=== PATIENT | male | born 1945 | race Caucasian/White ===

== ENCOUNTER 2018-08-15 06:39 | Day surgery (SDC) | payer MEDICARE ==
[2018-08-14 12:59] VITALS: BMI 46.0
[2018-08-15] MEDS ORDERED: Fentanyl 100 MCG/2 ML VIAL ONE (09:26)
--- NOTE | 2018-08-15 12:43 | OP ---
DATE OF PROCEDURE: 08/15/2018 PREOPERATIVE DIAGNOSIS: Anemia. DESCRIPTION OF PROCEDURE: After informed consent was obtained, the patient was placed in the left lateral decubitus position. Anesthesia was administered per the Anesthesia Department. Forward-viewing endoscope was inserted into the esophagus under direct visualization with ease and passed to the second portion of the duodenum with ease. Second portion of the duodenum was normal. Duodenal bulb showed mild erythema and two small erosions. Biopsies were taken from the second portion of the duodenum and from the gastric antrum. The pylorus, antrum, body, fundus, and cardia were all normal. Retroflexion in the stomach was normal. The esophagus was normal throughout. ASSESSMENT: 1. Mild duodenitis-status post biopsy for Helicobacter pylori. 2. Otherwise normal esophagogastroduodenoscopy. RECOMMENDATIONS: 1. Await histopathology. 2. Proceed with colonoscopy. DESCRIPTION OF PROCEDURE: After informed consent was obtained, the patient was placed in the left lateral decubitus position. Anesthesia was administered per the Anesthesia Department. Forward-viewing endoscope was inserted into the rectum after perianal inspection and rectal exam were normal and passed to the cecum with some difficulty secondary to looping for intubation of the cecum was not performed, but the cecal cap could be seen in its entirety and showed no abnormalities. The prep was good. Diffuse diverticula were noted in the colon. Multiple polyps were seen. All these polyps were in the small range. They were sessile or pedunculated and they were all removed with either cold snare polypectomy or hot snare polypectomy. One polyp in the area of the descending had some minor bleeding after the polypectomy and was treated with a 10-Prydeinig BICAP electrocautery probe. Retroflexion in the rectum was normal. ASSESSMENT: 1. Multiple colon polyps 10 in number, all small, removed with either hot or cold snare polypectomy. 2. One small minor post polypectomy bleed, treated with a 10-Prydeinig BICAP electrocautery probe. 3. Diffuse diverticulosis coli. RECOMMENDATIONS: Await histopathology. Job ID: [id number]
[2018-08-15] MEDS ORDERED: PROPOFOL 200 MG/20 ML VIAL ONE (16:23)
[2018-08-15] MEDS ORDERED: Lidocaine 1% PF 5 ML VIAL ONE (16:23)
== END 2018-08-15 11:15 | disposition home or self-care (01) ==
LOC: SDC 06:39
PROVIDERS: ATTEND Internal Medicine Gastroenterology
PROC: 0DB98ZX Excision of Duodenum, Via Natural or Artificial Opening Endoscopic, Diagnostic (ICD-10-PCS; principal; 2018-08-15)
PROC: 0DBK8ZX Excision of Ascending Colon, Via Natural or Artificial Opening Endoscopic, Diagnostic (ICD-10-PCS; 2018-08-15)
PROC: 0DBM8ZZ Excision of Descending Colon, Via Natural or Artificial Opening Endoscopic (ICD-10-PCS; 2018-08-15)
DX: Z12.11 Encounter for screening for malignant neoplasm of colon (principal); D50.9 Iron deficiency anemia, unspecified; K29.50 Unspecified chronic gastritis without bleeding; B96.81 Helicobacter pylori [H. pylori] as the cause of diseases classified elsewhere; D12.2 Benign neoplasm of ascending colon; D12.3 Benign neoplasm of transverse colon; K29.80 Duodenitis without bleeding; K57.30 Diverticulosis of large intestine without perforation or abscess without bleeding; K26.9 Duodenal ulcer, unspecified as acute or chronic, without hemorrhage or perforation; I25.10 Atherosclerotic heart disease of native coronary artery without angina pectoris; E78.5 Hyperlipidemia, unspecified; I25.2 Old myocardial infarction; E10.40 Type 1 diabetes mellitus with diabetic neuropathy, unspecified; G47.33 Obstructive sleep apnea (adult) (pediatric); I10 Essential (primary) hypertension; E87.6 Hypokalemia; E66.01 Morbid (severe) obesity due to excess calories; Z68.42 Body mass index [BMI] 45.0-49.9, adult; Z86.010 Personal history of colon polyps; Z87.891 Personal history of nicotine dependence; Z79.82 Long term (current) use of aspirin; Z79.899 Other long term (current) drug therapy; Z88.8 Allergy status to other drugs, medicaments and biological substances
CPT/HCPCS: 36416; 88305; 88312; J2001; J2704; J3010

== ENCOUNTER 2021-07-19 09:48 | Outpatient (CLI) | payer MEDICARE, OTHER ==
[2021-07-19 21:44] LABS: SARS-CoV-2 PCR by NAA Not Detected (NotDetected)
== END 2021-07-19 09:49 | disposition home or self-care (01) ==
LOC: LABBT 09:48
PROVIDERS: ATTEND Internal Medicine Gastroenterology
DX: Z20.822 Contact with and (suspected) exposure to COVID-19 (principal)
CPT/HCPCS: U0003; U0005

== ENCOUNTER 2021-08-31 09:21 | Outpatient (CLI) | payer MEDICARE, OTHER ==
[2021-08-31 23:51] LABS: SARS-CoV-2 PCR by NAA Not Detected (NotDetected)
== END 2021-08-31 09:22 | disposition home or self-care (01) ==
LOC: LABBT 09:21
PROVIDERS: ATTEND Internal Medicine Gastroenterology
DX: R13.10 Dysphagia, unspecified (principal); Z86.010 Personal history of colon polyps; Z20.822 Contact with and (suspected) exposure to COVID-19
CPT/HCPCS: U0003; U0005

== ENCOUNTER 2021-09-05 05:56 | Day surgery (SDC) | payer OTHER ==
[2021-08-29 12:36] VITALS: BMI 45.9
[2021-09-05] MEDS ORDERED: Glycopyrrolate 0.2 MG/ML 5 ML SYRINGE ONE (07:50)
[2021-09-05] MEDS ORDERED: Lidocaine 1% PF 5 ML VIAL ONE (07:50)
[2021-09-05] MEDS ORDERED: PROPOFOL 200 MG/20 ML VIAL ONE (07:50)
[2021-09-05] MEDS ORDERED: Atropine Sulfate 0.4 mg/1 ml Vial ONE (08:03)
== END 2021-09-05 10:15 | disposition home or self-care (01) ==
LOC: SDC 05:56
PROVIDERS: ATTEND Internal Medicine Gastroenterology
PROC: 0DBM8ZX Excision of Descending Colon, Via Natural or Artificial Opening Endoscopic, Diagnostic (ICD-10-PCS; principal; 2021-09-05)
PROC: 0D758ZZ Dilation of Esophagus, Via Natural or Artificial Opening Endoscopic (ICD-10-PCS; principal; 2021-09-05)
PROC: 0DBP8ZX Excision of Rectum, Via Natural or Artificial Opening Endoscopic, Diagnostic (ICD-10-PCS; principal; 2021-09-05)
PROC: 0DBL8ZX Excision of Transverse Colon, Via Natural or Artificial Opening Endoscopic, Diagnostic (ICD-10-PCS; principal; 2021-09-05)
PROC: 0DB78ZX Excision of Stomach, Pylorus, Via Natural or Artificial Opening Endoscopic, Diagnostic (ICD-10-PCS; principal; 2021-09-05)
DX: Z12.11 Encounter for screening for malignant neoplasm of colon (principal); D12.4 Benign neoplasm of descending colon; K62.1 Rectal polyp; K63.3 Ulcer of intestine; K31.89 Other diseases of stomach and duodenum; R13.10 Dysphagia, unspecified; K26.9 Duodenal ulcer, unspecified as acute or chronic, without hemorrhage or perforation; K57.30 Diverticulosis of large intestine without perforation or abscess without bleeding; G47.33 Obstructive sleep apnea (adult) (pediatric); I10 Essential (primary) hypertension; E78.5 Hyperlipidemia, unspecified; E11.9 Type 2 diabetes mellitus without complications; I25.10 Atherosclerotic heart disease of native coronary artery without angina pectoris; I25.2 Old myocardial infarction; M19.90 Unspecified osteoarthritis, unspecified site; E66.01 Morbid (severe) obesity due to excess calories; Z68.42 Body mass index [BMI] 45.0-49.9, adult; Z86.010 Personal history of colon polyps; Z87.891 Personal history of nicotine dependence; Z79.4 Long term (current) use of insulin; Z79.82 Long term (current) use of aspirin; Z79.899 Other long term (current) drug therapy; Z88.8 Allergy status to other drugs, medicaments and biological substances
CPT/HCPCS: 36416; 88305; J0461; J2704

== ENCOUNTER 2024-01-20 13:38 | Outpatient (CLI) | payer MEDICARE | END 2024-01-20 13:39 | disposition home or self-care (01) | LOC: BICCT 13:38 | PROVIDERS: ATTEND Student in an Organized Health Care Education/Training Program | DX: I25.110 Atherosclerotic heart disease of native coronary artery with unstable angina pectoris (principal); I65.22 Occlusion and stenosis of left carotid artery | CPT/HCPCS: 70498 ==

== ENCOUNTER 2024-04-07 06:10 | Inpatient (IN) | payer MEDICARE ==
[2024-04-07] MEDS ORDERED: fentaNYL PF 100 MCG/2 ML SYRINGE ONE (07:03)
[2024-04-07] MEDS ORDERED: Rocuronium Bromide 10 MG/ML (10ML VIAL) ONE ×2 (07:03→07:06)
[2024-04-07] MEDS ORDERED: Lidocaine 2% PF 5 ML VIAL ONE (07:03)
[2024-04-07] MEDS ORDERED: PROPOFOL 20 ML ONE (07:04)
[2024-04-07] MEDS ORDERED: Dexamethasone 20 MG/5 ML VIAL ONE (07:06)
[2024-04-07] MEDS ORDERED: Ondansetron PF 4 MG/2 ML Vial ONE (07:06)
[2024-04-07] MEDS ORDERED: Glycopyrrolate 0.2 MG/ML 5 ML SYRINGE ONE (07:07)
[2024-04-07] MEDS ORDERED: PHENYLEPHRINE-NS 100 MCG/ML 10 ML SYRINGE ONE (07:07)
[2024-04-07] MEDS ORDERED: NEOSTIGMINE 3 MG/3 ML SYRINGE ONE (07:07)
[2024-04-07] MEDS ORDERED: Bupivacaine 0.25% HCL 30 ML VIAL ONE (07:12)
[2024-04-07] MEDS ORDERED: Heparin 5,000 UNITS/ML VIAL ONE (07:12)
[2024-04-07] MEDS ORDERED: EPINEPHrine 1 MG/ML VIAL ONE (07:12)
[2024-04-07] MEDS ORDERED: Protamine Sulfate 50 MG/5 ML VIAL ONE ×2 (07:12→08:54)
[2024-04-07] MEDS ORDERED: Bupivacaine PF 0.5% 30 ML VIAL ONE (07:18)
[2024-04-07] MEDS ORDERED: Ondansetron ODT 4 MG TAB ONE (07:31)
[2024-04-07 07:32] LABS: #Basophils 0.09 10x3/uL (0.0-0.2); %Basophils 1.1 % (0.0-1.0); %Eosinophils 5.4 % (0.0-10.0); %Lymphocytes 16.5 % (21.0-51.0); %Monocytes 10.4 % (0.0-10.0); %Neutrophils 66.2 % (42.0-75.0); Hematocrit 40.9 % (42.0-52.0); Mean Corpuscular HGB CONC 31.8 g/dL (32.0-36.0); Mean Corpuscular Hemoglobin 28.8 pg (27.0-31.0); Mean Corpuscular Volume 90.7 fL (78.0-98.0); Mean Platelet Volume 10.6 fL (7.4-10.4); Platelet Count 183 10x3/uL (130-400); RBC Distribution Width 15.5 % (11.5-14.5); Red Blood Cell (RBC) Count 4.51 mill/uL (4.70-6.10)
[2024-04-07] MEDS ORDERED: CEFAZOLIN 2 GM VIAL ONE (07:39)
[2024-04-07] MEDS ORDERED: Sodium Chloride 0.9% 100 ML ONE (07:39)
[2024-04-07] MEDS ORDERED: SUCCINYLCHOLINE/SOD CL,ISO/PF 200 MG/10 ML SYRINGE FS ONE (07:51)
[2024-04-07 07:53] LABS: Anion Gap 12 mmol/L (10-20); BUN (Urea Nitrogen) 11 mg/dL (8.4-25.7); Calc. Creatinine Clearance 133 mL/min (70-130); Calcium 9.3 mg/dL (7.8-10.44); Carbon Dioxide 29 mmol/L (23-31); Chloride 107 mmol/L (98-107); Estimated GFR 91; Glucose 95 mg/dL (83-110); Sodium 144 mmol/L (136-145)
[2024-04-07] MEDS ORDERED: Esmolol 100 MG/10 ML VIAL ONE (08:14)
[2024-04-07] MEDS ORDERED: Heparin 10,000 UNITS/ 10 ML VIAL ONE (08:14)
[2024-04-07] MEDS ORDERED: Protamine Sulfate 250 MG/25 ML VIAL ONE (08:54)
[2024-04-07] MEDS ORDERED: Ondansetron PF 4 MG/2 ML Vial IVP PRN (09:22)
[2024-04-07] MEDS ORDERED: Acetaminophen 325 MG TAB PO PRN (09:22)
[2024-04-07] MEDS ORDERED: Ipratropium/Albuterol 3 ML NEB NEB PRN (09:22)
[2024-04-07] MEDS ORDERED: fentaNYL 50 mcg/mL 1 mL Vial SLOW IVP PRN ×2 (09:22)
[2024-04-07] MEDS ORDERED: traMADol HCl 50 MG TAB PO PRN ×2 (09:22)
[2024-04-07] MEDS ORDERED: hydrALAZINE 20 MG/ML VIAL ONE (09:37)
[2024-04-07] MEDS ORDERED: Phenylephrine 40 MG/NS 250 ML 40 MG in Premix 1 BAG IVPB PRN (09:37)
[2024-04-07 12:19] VITALS: BMI 39.0
[2024-04-07] MEDS: Sodium Chloride 0.9% 1,000 ML IV SCH (12:51)
[2024-04-07] MEDS: hydrALAZINE 20 MG/ML VIAL SLOW IVP PRN (12:51)
[2024-04-07] MEDS: Nitroglycerin 50 MG/250 ML BOT 250 ML IVPB PRN (13:06)
[2024-04-07] MEDS: Ipratropium/Albuterol 3 ML NEB NEB SCH (13:08)
[2024-04-07] MEDS: Gabapentin 300 MG CAP PO SCH (15:24)
[2024-04-07] MEDS: CEFAZOLIN 2 GM in Sodium Chloride 0.9% 100 ML IVPB SCH (15:24)
[2024-04-07] MEDS: Furosemide 40 MG TAB PO SCH (19:57)
[2024-04-07] MEDS: Amlodipine 10 MG TAB PO SCH (20:47)
[2024-04-07] MEDS: Atorvastatin Calcium 40 MG TAB PO SCH (20:51)
[2024-04-07] MEDS: Cilostazol 100 MG TAB PO SCH (20:52)
[2024-04-07] MEDS: hydrALAZINE 25 MG TAB PO SCH (20:55)
[2024-04-07 20:56] VITALS: BP 127/58
[2024-04-07] MEDS: Insulin Regular, Human 100 UNIT/ML 10 ML VIAL SC PRN (21:45)
[2024-04-08] MEDS: Potassium Chloride 20 MEQ TAB PO SCH (07:43)
[2024-04-08] MEDS: Cyanocobalamin (Vitamin B-12) 1,000 MCG TAB PO SCH (07:44)
[2024-04-08] MEDS: Empagliflozin 25 MG TAB PO SCH (07:46)
[2024-04-08] MEDS: Aspirin 81 mg Enteric Coated Tablet PO SCH (07:47)
[2024-04-08] MEDS: Furosemide 40 MG TAB PO SCH (07:47)
[2024-04-08] MEDS: CEFAZOLIN 2 GM in Sodium Chloride 0.9% 100 ML IVPB SCH (07:50)
[2024-04-08 08:10] VITALS: TEMP 97.7
== END 2024-04-08 10:12 | disposition home or self-care (01) | DRG 39 ==
LOC: SURG A 06:10 → CCU 11:57 → EDSTATUS 12:56
PROVIDERS: ADMIT Thoracic Surgery (Cardiothoracic Vascular Surgery); ATTEND Thoracic Surgery (Cardiothoracic Vascular Surgery)
PROC: 03CJ0ZZ Extirpation of Matter from Left Common Carotid Artery, Open Approach (ICD-10-PCS; principal; 2024-04-07)
DX: I65.22 Occlusion and stenosis of left carotid artery (principal); E78.5 Hyperlipidemia, unspecified; I25.10 Atherosclerotic heart disease of native coronary artery without angina pectoris; I10 Essential (primary) hypertension; E10.9 Type 1 diabetes mellitus without complications; M19.90 Unspecified osteoarthritis, unspecified site; G47.33 Obstructive sleep apnea (adult) (pediatric); Z96.653 Presence of artificial knee joint, bilateral; I25.2 Old myocardial infarction; Z87.891 Personal history of nicotine dependence; Z88.8 Allergy status to other drugs, medicaments and biological substances; Z95.1 Presence of aortocoronary bypass graft; Z79.4 Long term (current) use of insulin
CPT/HCPCS: 36416; 80048; 85025; 94640; C1713; J0171; J0360; J0665; J1100; J1642; J1644; J1815; J2001; J2405; J2704; J2720; J7030; J7620; Q0162

== ENCOUNTER 2025-02-12 08:56 | Day surgery (SDC) | payer MEDICARE, OTHER ==
[2025-02-11 09:35] VITALS: BMI 35.7
[2025-02-12] MEDS ORDERED: Etomidate 40 MG (20 mL) VIAL ONE (10:24)
[2025-02-12] MEDS ORDERED: PROPOFOL 20 ML ONE (10:24)
[2025-02-12] MEDS ORDERED: Lidocaine 1% (PF) 30 ML VIAL ONE (10:24)
[2025-02-12] MEDS ORDERED: PHENYLEPHRINE-NS 100 MCG/ML 10 ML SYRINGE ONE (10:24)
[2025-02-12] MEDS ORDERED: GLYCOPYRROLATE/PF 0.2 MG/ML VIAL ONE (10:24)
== END 2025-02-12 12:37 | disposition home or self-care (01) ==
LOC: SDC 08:56
PROVIDERS: ATTEND Internal Medicine Cardiovascular Disease
PROC: B24BZZ4 Ultrasonography of Heart with Aorta, Transesophageal (ICD-10-PCS; principal; 2025-02-12)
DX: I48.0 Paroxysmal atrial fibrillation (principal); I08.1 Rheumatic disorders of both mitral and tricuspid valves; I25.2 Old myocardial infarction; I11.0 Hypertensive heart disease with heart failure; I50.32 Chronic diastolic (congestive) heart failure; E11.51 Type 2 diabetes mellitus with diabetic peripheral angiopathy without gangrene; E78.00 Pure hypercholesterolemia, unspecified; E66.9 Obesity, unspecified; Z96.653 Presence of artificial knee joint, bilateral; Z95.1 Presence of aortocoronary bypass graft; Z87.891 Personal history of nicotine dependence; Z98.41 Cataract extraction status, right eye; Z98.42 Cataract extraction status, left eye; Z68.36 Body mass index [BMI] 36.0-36.9, adult; Z88.8 Allergy status to other drugs, medicaments and biological substances; Z79.82 Long term (current) use of aspirin; Z79.84 Long term (current) use of oral hypoglycemic drugs; Z79.899 Other long term (current) drug therapy
CPT/HCPCS: 82962; 93005; 93312; J2704; J3490; 36416; 93010